=== PATIENT | female | born 1960 | race Caucasian/White ===

== ENCOUNTER → 2017-04-06 | Outpatient (CLI) | payer OTHER | END | disposition home or self-care (01) | LOC: MAMMO 15:01 | DX: Z12.31 Encounter for screening mammogram for malignant neoplasm of breast (principal) | CPT/HCPCS: 77063; 77067 ==

== ENCOUNTER → 2017-05-22 | Day surgery (SDC) | payer OTHER ==
[~2017-05-22] MED LIST: LIDOCAINE 1% PF 2 ML VIAL. ID; MORPHINE SULFATE 4 MG/ML DISP.SYRIN. IV; ONDANSETRON PF 4 MG/2 ML VIAL. IV; PROCHLORPERAZINE 10 MG/2 ML VIAL. IV; PROPOFOL 20 ML IV; fentaNYL PF VIAL 100 MCG/2 ML VIAL IV
[2017-05-22] MEDS: IV RINGERS,LACTATED 1000ML 1,000 ML IV (16:05)
== END ==
LOC: ENDOS 15:35
DX: Z09 Encounter for follow-up examination after completed treatment for conditions other than malignant neoplasm (principal); K21.9 Gastro-esophageal reflux disease without esophagitis; I10 Essential (primary) hypertension; M79.7 Fibromyalgia; F41.9 Anxiety disorder, unspecified; F32.9 Major depressive disorder, single episode, unspecified; Z88.8 Allergy status to other drugs, medicaments and biological substances; Z86.69 Personal history of other diseases of the nervous system and sense organs; Z80.0 Family history of malignant neoplasm of digestive organs
CPT/HCPCS: 45378; J2704

== ENCOUNTER → 2017-11-21 | Outpatient (CLI) | payer OTHER ==
[2017-05-22 17:24] VITALS: BP 118/55
[~2017-11-21] MED LIST changes: +AMIT100T PO; +BUPR100T7 PO; +CARI350T14 PO; +CITA10TA4 PO; +GABA-586 PO; +HYDR-2758 PO; +HYDR12.53 PO; +LACT1CAP6 PO; -LIDOCAINE 1% PF 2 ML VIAL. ID; -MORPHINE SULFATE 4 MG/ML DISP.SYRIN. IV; +OMEP20TA63 PO; -ONDANSETRON PF 4 MG/2 ML VIAL. IV; -PROCHLORPERAZINE 10 MG/2 ML VIAL. IV; -PROPOFOL 20 ML IV; +[UNRECOGNIZED DRUG - OTHER]; -fentaNYL PF VIAL 100 MCG/2 ML VIAL IV
--- NOTE | 2017-11-21 16:33 | RAD ---
Five-view lumbar spine dated 11/21/2017. No comparison available. Clinical data indication: Lumbar radiculopathy. FINDINGS: AP, lateral, bilateral oblique and coned-down views of lumbosacral junction obtained. 5 nonrib-bearing vertebral levels. Vertebral body heights are maintained. There is mild disc space narrowing at L2-L3 and L5-S1. Sagittal alignment is anatomic. Mild to moderate endplate hypertrophic changes throughout. Mild arthrosis lower lumbar apophyseal joints. No pars defects on the oblique views. IMPRESSION: 1. No acute radiographic abnormality. 2. Mild lower lumbar spondylosis. Electronically signed by: Rao Dickson MD (11/21/2017 4:30 PM) [facility]
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
== END | disposition home or self-care (01) ==
LOC: PNCL 14:19
PROVIDERS: ATTEND Anesthesiology
DX: M47.896 Other spondylosis, lumbar region (principal); M48.061 Spinal stenosis, lumbar region without neurogenic claudication; M79.604 Pain in right leg; M79.18 Myalgia, other site; M19.90 Unspecified osteoarthritis, unspecified site; I10 Essential (primary) hypertension; M89.38 Hypertrophy of bone, other site; Z82.49 Family history of ischemic heart disease and other diseases of the circulatory system; Z80.0 Family history of malignant neoplasm of digestive organs
CPT/HCPCS: 72110; 99214

== ENCOUNTER → 2018-02-06 | Outpatient (CLI) | payer OTHER ==
[2017-05-22 17:24] VITALS: BP 118/55
[~2018-02-06] MED LIST changes: +BUPIVACAINE MPF 0.25% 10 ML VIAL. ONE; -GABA-586 PO; +GABA300C18 PO; -HYDR-2758 PO; +HYDR-2761 PO; -HYDR12.53 PO; +HYDR12.575 PO; +methylPREDNISolone ACETATE 40 MG/ML VIAL. ONE
--- NOTE | 2018-02-06 18:36 | PAIN ---
DATE OF SERVICE: 02/06/2018 DIAGNOSES: 1. Low back pain with lumbar radiculopathy. 2. Myofascial pain. HISTORY OF PRESENT ILLNESS: The patient is a 57-year-old female who returns for followup status post initial evaluation and preauthorization for trigger point injections and has returned with preauthorization patient would like to proceed, still significant pain in the mid back, low back, bilateral hips, somewhat worse on the right than the left with some pain radiating to the right lower extremity as well. The patient reports it is a 9 on a scale of 10 at its worst, 7 on average, 3 at its least and is 7 today, which is worse with walking, standing, change in positions, awakens her from sleep several times a night, better with heat application, stretching and massage techniques in the mid and low back. The patient reports difficulty with walking. She has been stumbling, feels unsteady on her feet. The patient reports the pain is aching, sharp, dull, tight, shooting, stabbing, burning and cramping in the low back, becoming more constant some in the right leg as well. The patient reports no new motor or sensory deficits. No new bowel or bladder incontinence. PHYSICAL EXAMINATION: VITAL SIGNS: The patient's blood pressure 130/92, pulse is 71, respirations 16, temperature 98.3 degrees Fahrenheit, 5 feet 4 inches, weighs 142 pounds. GENERAL: The patient is awake, alert, oriented, appropriate, very pleasant demeanor. HEENT: Shows normocephalic, atraumatic. Extraocular muscles are intact and symmetrical. Oral cavity: Mucous membranes are moist and pink. Dentition is intact. NECK: Shows anterior throat supple without palpable lymphadenopathy noted. Swallow reflex symmetrical. CHEST: Shows normal on inspection. Breath sounds clear to auscultation bilaterally. HEART: Shows S1, S2 clear. No murmurs auscultated. ABDOMEN: Soft, nontender, nondistended. No palpable organomegaly is noted. No rebound or guarding demonstrated. BACK: Shows spine grossly in the midline. Normal appearing thoracic kyphosis and lumbar lordotic curvature. Paraspinous muscle shows symmetrical in the thoracic distribution, with palpation shows some moderate tenderness and very firm rope-like musculature in the inferior aspect of the thoracic paraspinous musculature. This is true into the bilateral lumbar paraspinous muscles, slightly worse on the right than the left, but present bilaterally with very firm rope-like musculature consistent with trigger point areas of musculature here as well. The patient's lower lumbar paraspinous muscle is more tender than the upper with multiple rope-like musculature regions identified as well without specific radiation. The patient's gluteus shows superior medial aspect of the gluteus on the right side greater than the left. Very significantly tender with palpation and rope-like musculature as well consistent with trigger point areas of muscle, but again no specific radiation. EXTREMITIES: The patient's lower extremities show deep tendon reflexes at 1+ in the patellar and tendo calcaneus tendons. Motor exam is approximately 4 on a scale 5 on the right and 5 out of 5 on the left with dorsiflexion and extension. Peripheral pulses are 1+ posterior tibia. No peripheral edema is noted. Options were discussed with the patient. The patient's old chart was reviewed as her current medication regimen updated. Current review of systems is updated today as well. We will proceed with trigger point injections of the thoracic paraspinous musculature, lumbar paraspinous musculature and gluteus musculature bilaterally. Risks were again discussed including, but not limited to bleeding, infection, possibility of intravascular injection sequelae, spread of local anesthetic and numbness, side effects of steroid medication and poor results regarding pain control. The patient understands and wished to proceed. The patient will return to the clinic in approximately 2 weeks for followup, was counseled on return appointment, activity level and side effects to be aware of. DIAGNOSIS: Myofascial pain and low back pain. PROCEDURE: Trigger point injections, bilateral thoracic paraspinous musculature, bilateral lumbar paraspinous musculature, bilateral gluteus musculature under sterile prep and drape using local anesthetic. MEDICATION INJECTED: A total of 10 mL of 0.25% bupivacaine and 40 mg total of Depo-Medrol after negative aspiration at each injection site. CONDITION AT DISCHARGE: Stable. The patient tolerated the procedure well, had no complications. BRANDON SAEZ MD DR: TINO/aramis JOB#: [id number] / [id number]
== END | disposition home or self-care (01) ==
LOC: PNCL 13:00
PROVIDERS: ATTEND Anesthesiology
DX: M79.18 Myalgia, other site (principal); M54.16 Radiculopathy, lumbar region
CPT/HCPCS: 20553; J1030; J3490

== ENCOUNTER → 2018-04-03 | Outpatient (CLI) | payer OTHER ==
[2017-05-22 17:24] VITALS: BP 118/55
[~2018-04-03] MED LIST changes: -BUPIVACAINE MPF 0.25% 10 ML VIAL. ONE; +CITA40TA5 PO; +MORP60TA PO; +PROP10TA PO; -methylPREDNISolone ACETATE 40 MG/ML VIAL. ONE
--- NOTE | 2018-04-04 04:16 | PAIN ---
DATE OF SERVICE: 04/03/2018 PROGRESS NOTE FOR PAIN CLINIC DIAGNOSES: 1. Low back pain with lumbar radiculopathy. 2. Myofascial pain. HISTORY OF PRESENT ILLNESS: The patient is 57-year-old female who returns for followup status post trigger point injections on 02/06/2018. The patient did very well with this, about 75% improvement overall. Pain in the low back as well as the pain in the right leg, which is becoming much more noticeable now, but was much better after the injection. The patient reports there is increase in her distance walking, doing work at home as well as taking care of her father who is very ill and has lot of needs with transporting and ambulatory needs at home. The patient reports this is beginning to make the pain return although it has been approximately 2 months since her last injection. She is having pain down the right leg again, in the posterior gluteus, posterior thigh and posterior calf. The patient reports pain in the low back as her primary complaint, aching, sharp, dull, tight, shooting, cramping, stabbing, becoming more constant, more radiating, some in the right side of the leg is noted. The patient reports it awakens her from sleep about every other night, but not every night. She sleeps about 4 hours at a time regardless of the pain or not. The patient reports no new motor or sensory deficits, no new changes or other complaints. PHYSICAL EXAMINATION: VITAL SIGNS: The patient's blood pressure 124/82, pulse 78, respirations 16, temperature is 98.4 degrees Fahrenheit, height is 5 feet 4 inches, weight is 142 pounds. The patient rates her pain as a 7 on a scale of 10 at its worst, 7 on average, 3 at its least and is a 7 today. GENERAL: The patient is awake, alert, oriented, appropriate, very pleasant demeanor. HEENT: Head shows normocephalic and atraumatic. Extraocular movements are intact and symmetrical. Oral cavity: Mucous membranes are moist and pink. Dentition is intact. NECK: Shows anterior throat is supple without palpable lymphadenopathy noted. Swallow reflex is symmetrical. CHEST: Shows normal with inspection. Breath sounds are clear to auscultation bilaterally. HEART: Shows S1 and S2 clear. No murmurs are auscultated. ABDOMEN: Obese, but soft, nontender and nondistended. No palpable organomegaly is noted. BACK: Shows spine grossly in the midline. Normal appearing thoracic kyphosis, mild flattening of the lumbar lordotic curvature. Lumbar paraspinous muscle shows symmetrical on inspection. With palpation shows some very firm rope-like musculature in the bilateral low thoracic and middle, upper and lower lumbar paraspinous musculature, right essentially equal to left, but more painful in the right lower lumbar paraspinous muscle, but very firm rope-like musculature consistent with trigger point areas of musculature without specific radiation. The patient has good rotational motion of the lumbar spine, slightly tender with forward flexion, but not with extension. EXTREMITIES: Lower extremities show deep tendon reflexes 1+ in the patellar and tendo-calcaneus tendons. Motor exam is approximately 4 on a scale of 5 on the right and 5/5 on the left with dorsiflexion and extension. Peripheral pulses are 1+ posterior tibial. No peripheral edema is noted bilaterally. Options were discussed with the patient. The patient's old chart was reviewed as was her current medication regimen updated. Current review of systems updated today as well. We will preauthorize the patient for a repeat trigger point injection as she did very well with the last injections. She will maintain with heat and massage therapies, also stretching and strengthening exercises as she has been doing, walking daily if possible as well. Prescribed Medrol Dosepak with instructions and side effects to be aware of discussed as well BRANDON SAEZ MD DR: TINO/aramis JOB#: [id number] / [id number]
== END | disposition home or self-care (01) ==
LOC: PNCL 13:38
PROVIDERS: ATTEND Anesthesiology
DX: M54.16 Radiculopathy, lumbar region (principal); M79.18 Myalgia, other site
CPT/HCPCS: G0463

== ENCOUNTER 2018-04-12 18:59 | Inpatient (IN) | payer OTHER ==
[~2018-04-12] VITALS: Ht 165.1 cm; Wt 68.6 kg
[~2018-04-12 18:59] MED LIST changes: -CITA40TA5 PO; -MORP60TA PO
[2018-04-12] MEDS ORDERED: DEXTROSE 50% 25 GM / 50ML DISP.SYRIN. IV ONE ×2 (19:28→20:00)
[2018-04-12 19:50] LABS: BASO % 1 % (0-3); EOS # 0.2 x10^3/uL (0.0-0.7); EOS % 3 % (0-3); HEMATOCRIT 32.9 % (36.0-47.0); HEMOGLOBIN 10.6 g/dL (12.0-15.5); LYMPH # 2.6 x10^3/uL (1.0-4.8); LYMPH % 40 % (24-48); MEAN CORPUSCULAR HEMOGLOBIN 28 pg (25-35); MEAN CORPUSCULAR HGB CONC 32 g/dL (31-37); MEAN CORPUSCULAR VOLUME 87 fL (79-100); MONO # 0.8 x10^3/uL (0.0-1.1); MONO % 13 % (0-9); NEUT # 2.8 x10^3uL (1.8-7.7); NEUT % 44 % (31-73); PLATELET COUNT 210 x10^3/uL (140-400); RED BLOOD COUNT 3.77 x10^6/uL (3.50-5.40); RED CELL DISTRIBUTION WIDTH 13.4 % (11.5-14.5); WHITE BLOOD COUNT 6.5 x10^3/uL (4.0-11.0)
[2018-04-12 19:53] LABS: BILIRUBIN,URINE NEGATIVE (NEG); CLARITY,URINE CLEAR; COLOR,URINE YELLOW; NITRITE,URINE NEGATIVE (NEG); PROTEIN,URINE NEGATIVE (NEG-TRACE); UROBILINOGEN,URINE 0.2 mg/dL (0.2 mg/dL)
[2018-04-12 20:00] LABS: PROTHROMBIN TIME PATIENT 13.4 SEC (11.7-14.0)
[2018-04-12] MEDS ORDERED: IV NORMAL SALINE 1000ML BAG 1,000 ML IV ONE ×3 (20:00→22:00)
[2018-04-12 20:01] LABS: BARBITURATES NEG (NEG); BENZODIAZEPINES NEG (NEG); CANNABINOIDS NEG (NEG); COCAINE NEG (NEG); METHADONE NEG (NEG); OPIATES POS (NEG); PHENCYCLIDINE NEG (NEG)
[2018-04-12 20:02] LABS: AMPHETAMINE/METHAMPHETAMINE NEG (NEG)
[2018-04-12 20:06] LABS: ALBUMIN 3.4 g/dL (3.4-5.0); ALBUMIN/GLOBULIN RATIO 1.2 (1.0-1.7); CALCIUM 8.1 mg/dL (8.5-10.1); GFR 56.7; MAGNESIUM 2.1 mg/dL (1.8-2.4); TOTAL BILIRUBIN 0.3 mg/dL (0.2-1.0); TOTAL PROTEIN 6.3 g/dL (6.4-8.2)
[2018-04-12 20:06] LABS: HYALINE CASTS, URINE MANY /HPF; SQUAMOUS EPITHELIAL CELL,UR FEW /LPF
[2018-04-12 20:07] LABS: BACTERIA,URINE 0 /HPF (0-FEW); RBC,URINE OCC /HPF (0-2); WBC,URINE OCC /HPF (0-4)
--- NOTE | 2018-04-12 21:08 | RAD ---
CT HEAD AND CERVICAL SPINE WO Clinical indications: trauma, headache. FELL TODAY. Technique: Noncontrast axial cross sectional scanning of the head was performed. PQRS compliance Statement One or more of the following individualized dose reduction techniques were utilized for this study: 1. Automated exposure control 2. Adjustment of the mA and/or kV according to patient size 3. Use of iterative reconstruction technique Findings: No acute intracranial hemorrhage or midline shift or mass-effect or hydrocephalus or extra-axial fluid collection is seen. No focal hypodense area or sulci effacement is seen to indicate an acute infarct or edema radiographically. No skull fracture or pneumocephalus is seen. No opacification of the mastoid sinuses or the middle ear cavities or the paranasal sinuses is seen. Impression: No acute intracranial abnormality is seen. NONCONTRAST CERVICAL SPINE CT TECHNIQUE: Noncontrast helical CT scanning of the cervical spine was performed. Multiplanar 2-D reconstructions were generated. FINDINGS: No acute fracture or discitis or lytic process is seen. Minimal grade 1 anterolisthesis of C3-4 is seen. There is degenerative endplate spurring and disc space narrowing at C4-5 and C5-6 and C6-7. Degenerative facet arthropathy is seen throughout the cervical spine. No perching of facet joints is seen. IMPRESSION: No acute fracture. Degenerative cervical spondylosis. Electronically signed by: West Persaud MD (04/12/2018 9:05 PM) [facility]
[2018-04-12] MEDS ORDERED: cefTRIAXone IV Push 1 GM VIAL. IVP ONE (22:00)
--- NOTE | 2018-04-12 22:27 | RAD ---
AP chest. HISTORY: Syncope AP view was taken of the chest. Heart is normal in size. There is no pleural effusion. There are slight interstitial changes in the in the lungs from mild interstitial edema or interstitial infiltrates. IMPRESSION: 1. Mild interstitial infiltrates or edema. Electronically signed by: Abbe Hunter MD (04/12/2018 10:24 PM) [id number]
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
[2018-04-12] MEDS ORDERED: MORPHINE SULFATE 4 MG/ML VIAL. IV ONE (23:00)
[2018-04-12] MEDS ORDERED: IV DEXTROSE 5 %-0.45 % NACL 1,000 ML IV ONE (23:00)
[2018-04-12] MEDS ORDERED: ONDANSETRON PF 4 MG/2 ML VIAL. IV PRN (23:00)
[2018-04-12] MEDS ORDERED: DOXYCYCLINE HYCLATE 100 MG in IV DEXTROSE 5% 100ML 100 ML IV ONE (23:15)
[2018-04-12] MEDS ORDERED: KETOROLAC 15 MG/ML VIAL. IV ONE (23:15)
[2018-04-12] MEDS ORDERED: IOHEXOL 300 MG/ML 100ML VIAL. IV ONE (23:15)
[2018-04-12] MEDS ORDERED: CONTRAST GIVEN. MC PRN (23:15)
--- NOTE | 2018-04-12 23:52 | RAD ---
CT study of the abdomen and pelvis with contrast COMPARISON: None available. INDICATIONS: Hypoglycemia. Unclear etiology. Possible insulinoma. TECHNIQUE: After IV infusion of 60 cc of Omnipaque 300, helical CT scanning of the abdomen and pelvis was performed. No GI contrast was administered. This may decrease the sensitivity to detect GI tract pathology. PQRS compliance Statement One or more of the following individualized dose reduction techniques were utilized for this study: 1. Automated exposure control 2. Adjustment of the mA and/or kV according to patient size 3. Use of iterative reconstruction technique FINDINGS: The liver and spleen and pancreas and gallbladder are normal. No extrahepatic biliary ductal dilatation is seen. No adrenal mass is evident. Both kidneys are normal. Urinary bladder wall is smooth. No uterine mass is evident. No dominant ovarian cyst or mass is evident. No focal aneurysmal dilatation of the abdominal aorta is seen. No enlarged abdominal or pelvic lymphadenopathy is evident. Mild fecal retention is seen throughout the colon. No obstructive bowel pattern is evident. The appendix is distended measuring up to 9 mm in caliber. No periappendiceal inflammatory change or free fluid or abscess is seen. No obstructive bowel pattern is evident. Dependent atelectasis of both posterior lower lobes is seen. No lytic process is seen. IMPRESSION: No pancreatic mass is seen. The appendix is distended measuring up to 9 mm in caliber. This may indicate early appendicitis. No periappendiceal free fluid or inflammatory change is evident otherwise. Electronically signed by: West Persaud MD (04/12/2018 11:49 PM) [facility]
[2018-04-13] MEDS ORDERED: POTASSIUM CHLORIDE 20 MEQ/15 ML ORAL LIQUID. PO ONE
[2018-04-13 00:32] VITALS: BP 108/51
[2018-04-13 03:00] VITALS: BP 109/62
[2018-04-13 06:09] LABS: CALCIUM 7.9 mg/dL (8.5-10.1); CREATININE 0.8 mg/dL (0.6-1.0); GFR 73.4
[2018-04-13 07:30] VITALS: BP 120/65
--- NOTE | 2018-04-13 08:31 | EKG ---
[facility] [address] [place] [address] Test Date: 2018-04-12 Test Time: 19:04:57 Pat Name: SYDNEY POTTS Department: Room: 263 1 Gender: F Scientist: : [id number] Requested By: VIRGILIO LO Order Number: [id number] Reading MD: Prasanth Armstrong MD Measurements Intervals [place] Rate: 60 P: 22 [place]: 162 QRS: 1 QRSD: 94 T: 24 QT: 448 QTc: 448 Interpretive Statements SINUS RHYTHM Electronically Signed On 04-23-2018 21:47:05 CDT by Prasanth Armstrong MD
[2018-04-13 11:06] VITALS: BP 123/58
[2018-04-13] MEDS ORDERED: CITA40TA5 PO (12:05)
[2018-04-13] MEDS ORDERED: CARI350T14 PO (12:05)
[2018-04-13] MEDS ORDERED: MORP60TA PO (12:05)
[2018-04-13] MEDS ORDERED: HYDROcodone/APAP 5/325MG 1 TAB TABLET PO PRN (12:15)
--- NOTE | 2018-04-13 12:17 | PDOC ---
PROGRESS NOTES Subjective Subjective Patient reports global headache presently. Denies lightheadedness. Just ate good amount of lunch. Objective Objective Vital Signs Date Time Temp Pulse Resp B/P (MAP) Pulse Ox O2 Delivery O2 Flow Rate FiO2 04/13/18 11:06 97.5 68 18 123/58 (79) 100 Room Air 97.5 04/12/18 22:26 2.0 Intake and Output 04/13/18 07:00 Intake Total 1700 ml Balance 1700 ml IV Total 1700 ml # Voids 1 Physical Exam Abdomen: Normal bowel sounds, Soft, No tenderness Heart: Regular rate Extremities: No edema General: Alert, Oriented X3, No acute distress Lungs: Clear to auscultation Plan Plan of Care 1. Vasovagal syncope - Patient had very little to eat all day yesterday, took all of her usual AM meds and had syncope after drinking some alcohol before dinner. Had another episode of brief LOC after returning home. CT head and C spine unremarkable, patient at baseline mental status and feels OK. Lab WNL this morning, tele with sinus rhythm. Home today. 2. hypoglycemia - resolved with IV glucose. FSBG normal now. No history of hyperglycemia. Lab for insulin level pending. Advised regular diet with plenty of protein and not much sugar. 3. HTN - BP mildly low, holding home medication but should resume tomorrow. 4. chronic pain - stable, continue home medication. 5. chronic headaches - stable, continue home medication. 6. enlarged appendix seen on CT - patient reports Dr Paredes removed her appendix with her R ovary many years ago. No TTP in R LQ. Comment Review of Relevant I have reviewed the following items maria alejandra (where applicable) has been applied. Labs Laboratory Tests Test 04/12/18 19:27 04/12/18 19:40 04/12/18 19:53 04/12/18 20:29 White Blood Count 6.5 x10^3/uL (4.0-11.0) Red Blood Count 3.77 x10^6/uL (3.50-5.40) Hemoglobin 10.6 g/dL (12.0-15.5) Hematocrit 32.9 % (36.0-47.0) Mean Corpuscular Volume 87 fL (79-100) Mean Corpuscular Hemoglobin 28 pg (25-35) Mean Corpuscular Hemoglobin Concent 32 g/dL (31-37) Red Cell Distribution Width 13.4 % (11.5-14.5) Platelet Count 210 x10^3/uL (140-400) Neutrophils (%) (Auto) 44 % (31-73) Lymphocytes (%) (Auto) 40 % (24-48) Monocytes (%) (Auto) 13 % (0-9) Eosinophils (%) (Auto) 3 % (0-3) Basophils (%) (Auto) 1 % (0-3) Neutrophils # (Auto) 2.8 x10^3uL (1.8-7.7) Lymphocytes # (Auto) 2.6 x10^3/uL (1.0-4.8) Monocytes # (Auto) 0.8 x10^3/uL (0.0-1.1) Eosinophils # (Auto) 0.2 x10^3/uL (0.0-0.7) Basophils # (Auto) 0.0 x10^3/uL (0.0-0.2) Prothrombin Time 13.4 SEC (11.7-14.0) Prothromb Time International Ratio 1.1 (0.8-1.1) Sodium Level 138 mmol/L (136-145) Potassium Level 3.0 mmol/L (3.5-5.1) Chloride Level 101 mmol/L (98-107) Carbon Dioxide Level 29 mmol/L (21-32) Anion Gap 8 (6-14) Blood Urea Nitrogen 8 mg/dL (7-20) Creatinine 1.0 mg/dL (0.6-1.0) Estimated GFR (Cockcroft-Gault) 56.7 BUN/Creatinine Ratio 8 (6-20) Glucose Level 32 mg/dL (70-99) Glucose (Fingerstick) 46 mg/dL (70-99) 141 mg/dL (70-99) 60 mg/dL (70-99) Lactic Acid Level 1.7 mmol/L (0.4-2.0) Calcium Level 8.1 mg/dL (8.5-10.1) Magnesium Level 2.1 mg/dL (1.8-2.4) Total Bilirubin 0.3 mg/dL (0.2-1.0) Aspartate Amino Transf (AST/SGOT) 20 U/L (15-37) Alanine Aminotransferase (ALT/SGPT) 21 U/L (14-59) Alkaline Phosphatase 56 U/L (46-116) Troponin I Quantitative < 0.017 ng/mL (0.000-0.055) GB-Qay-D-Type Natriuretic Peptide 57 pg/mL (0-124) Total Protein 6.3 g/dL (6.4-8.2) Albumin 3.4 g/dL (3.4-5.0) Albumin/Globulin Ratio 1.2 (1.0-1.7) Ethyl Alcohol Level 23 mg/dL (0-10) Urine Collection Type U cath Urine Color Yellow Urine Clarity Clear Urine pH 7.0 Urine Specific [place] 1.010 Urine Protein Negative mg/dL (NEG-TRACE) Urine Glucose (UA) 100 mg/dL (NEG) Urine Ketones (Stick) Negative mg/dL (NEG) Urine Blood Negative (NEG) Urine Nitrite Negative (NEG) Urine Bilirubin Negative (NEG) Urine Urobilinogen Dipstick 0.2 mg/dL (0.2 mg/dL) Urine Leukocyte Esterase Negative (NEG) Urine RBC Occ /HPF (0-2) Urine WBC Occ /HPF (0-4) Urine Squamous Epithelial Cells Few /LPF Urine Bacteria 0 /HPF (0-FEW) Urine Hyaline Casts Many /HPF Urine Mucus Slight /LPF Urine Opiates Screen Pos (NEG) Urine Methadone Screen Neg (NEG) Urine Barbiturates Neg (NEG) Urine Phencyclidine Screen Neg (NEG) Urine Amphetamine/Methamphetamine Neg (NEG) Urine Benzodiazepines Screen Neg (NEG) Urine Cocaine Screen Neg (NEG) Urine Cannabinoids Screen Neg (NEG) Urine Ethyl Alcohol Pos (NEG) Test 04/12/18 21:22 04/12/18 23:35 04/13/18 02:45 04/13/18 04:30 Glucose (Fingerstick) 90 mg/dL (70-99) 94 mg/dL (70-99) Troponin I Quantitative < 0.017 ng/mL (0.000-0.055) < 0.017 ng/mL (0.000-0.055) Sodium Level 138 mmol/L (136-145) Potassium Level 4.0 mmol/L (3.5-5.1) Chloride Level 104 mmol/L (98-107) Carbon Dioxide Level 27 mmol/L (21-32) Anion Gap 7 (6-14) Blood Urea Nitrogen 6 mg/dL (7-20) Creatinine 0.8 mg/dL (0.6-1.0) Estimated GFR (Cockcroft-Gault) 73.4 Glucose Level 93 mg/dL (70-99) Calcium Level 7.9 mg/dL (8.5-10.1) Test 04/13/18 08:02 04/13/18 11:34 Glucose (Fingerstick) 102 mg/dL (70-99) 123 mg/dL (70-99) Laboratory Tests Test 04/12/18 19:27 04/12/18 19:40 04/12/18 19:53 04/12/18 20:29 White Blood Count 6.5 x10^3/uL (4.0-11.0) Red Blood Count 3.77 x10^6/uL (3.50-5.40) Hemoglobin 10.6 g/dL (12.0-15.5) Hematocrit 32.9 % (36.0-47.0) Mean Corpuscular Volume 87 fL (79-100) Mean Corpuscular Hemoglobin 28 pg (25-35) Mean Corpuscular Hemoglobin Concent 32 g/dL (31-37) Red Cell Distribution Width 13.4 % (11.5-14.5) Platelet Count 210 x10^3/uL (140-400) Neutrophils (%) (Auto) 44 % (31-73) Lymphocytes (%) (Auto) 40 % (24-48) Monocytes (%) (Auto) 13 % (0-9) Eosinophils (%) (Auto) 3 % (0-3) Basophils (%) (Auto) 1 % (0-3) Neutrophils # (Auto) 2.8 x10^3uL (1.8-7.7) Lymphocytes # (Auto) 2.6 x10^3/uL (1.0-4.8) Monocytes # (Auto) 0.8 x10^3/uL (0.0-1.1) Eosinophils # (Auto) 0.2 x10^3/uL (0.0-0.7) Basophils # (Auto) 0.0 x10^3/uL (0.0-0.2) Prothrombin Time 13.4 SEC (11.7-14.0) Prothromb Time International Ratio 1.1 (0.8-1.1) Sodium Level 138 mmol/L (136-145) Potassium Level 3.0 mmol/L (3.5-5.1) Chloride Level 101 mmol/L (98-107) Carbon Dioxide Level 29 mmol/L (21-32) Anion Gap 8 (6-14) Blood Urea Nitrogen 8 mg/dL (7-20) Creatinine 1.0 mg/dL (0.6-1.0) Estimated GFR (Cockcroft-Gault) 56.7 BUN/Creatinine Ratio 8 (6-20) Glucose Level 32 mg/dL (70-99) Glucose (Fingerstick) 46 mg/dL (70-99) 141 mg/dL (70-99) 60 mg/dL (70-99) Lactic Acid Level 1.7 mmol/L (0.4-2.0) Calcium Level 8.1 mg/dL (8.5-10.1) Magnesium Level 2.1 mg/dL (1.8-2.4) Total Bilirubin 0.3 mg/dL (0.2-1.0) Aspartate Amino Transf (AST/SGOT) 20 U/L (15-37) Alanine Aminotransferase (ALT/SGPT) 21 U/L (14-59) Alkaline Phosphatase 56 U/L (46-116) Troponin I Quantitative < 0.017 ng/mL (0.000-0.055) VN-Vpu-J-Type Natriuretic Peptide 57 pg/mL (0-124) Total Protein 6.3 g/dL (6.4-8.2) Albumin 3.4 g/dL (3.4-5.0) Albumin/Globulin Ratio 1.2 (1.0-1.7) Ethyl Alcohol Level 23 mg/dL (0-10) Urine Collection Type U cath Urine Color Yellow Urine Clarity Clear Urine pH 7.0 Urine Specific [place] 1.010 Urine Protein Negative mg/dL (NEG-TRACE) Urine Glucose (UA) 100 mg/dL (NEG) Urine Ketones (Stick) Negative mg/dL (NEG) Urine Blood Negative (NEG) Urine Nitrite Negative (NEG) Urine Bilirubin Negative (NEG) Urine Urobilinogen Dipstick 0.2 mg/dL (0.2 mg/dL) Urine Leukocyte Esterase Negative (NEG) Urine RBC Occ /HPF (0-2) Urine WBC Occ /HPF (0-4) Urine Squamous Epithelial Cells Few /LPF Urine Bacteria 0 /HPF (0-FEW) Urine Hyaline Casts Many /HPF Urine Mucus Slight /LPF Urine Opiates Screen Pos (NEG) Urine Methadone Screen Neg (NEG) Urine Barbiturates Neg (NEG) Urine Phencyclidine Screen Neg (NEG) Urine Amphetamine/Methamphetamine Neg (NEG) Urine Benzodiazepines Screen Neg (NEG) Urine Cocaine Screen Neg (NEG) Urine Cannabinoids Screen Neg (NEG) Urine Ethyl Alcohol Pos (NEG) Test 04/12/18 21:22 04/12/18 23:35 04/13/18 02:45 04/13/18 04:30 Glucose (Fingerstick) 90 mg/dL (70-99) 94 mg/dL (70-99) Troponin I Quantitative < 0.017 ng/mL (0.000-0.055) < 0.017 ng/mL (0.000-0.055) Sodium Level 138 mmol/L (136-145) Potassium Level 4.0 mmol/L (3.5-5.1) Chloride Level 104 mmol/L (98-107) Carbon Dioxide Level 27 mmol/L (21-32) Anion Gap 7 (6-14) Blood Urea Nitrogen 6 mg/dL (7-20) Creatinine 0.8 mg/dL (0.6-1.0) Estimated GFR (Cockcroft-Gault) 73.4 Glucose Level 93 mg/dL (70-99) Calcium Level 7.9 mg/dL (8.5-10.1) Test 04/13/18 08:02 04/13/18 11:34 Glucose (Fingerstick) 102 mg/dL (70-99) 123 mg/dL (70-99) Medications Current Medications Dextrose (Dextrose 50%-Water Syringe) 25 gm STK-MED ONCE IV ; Start 04/12/18 at 19:28; Stop 04/12/18 at 19:29; Status DC Sodium Chloride 1,000 ml @ 1,000 mls/hr 1X ONCE IV Last administered on at 19:15; Start 04/12/18 at 20:00; Stop 04/12/18 at 20:59; Status DC Dextrose (Dextrose 50%-Water Syringe) 25 gm 1X ONCE IV Last administered on 04/12/18at 19:32; Start 04/12/18 at 20:00; Stop 04/12/18 at 20:01; Status DC Sodium Chloride 1,000 ml @ 1,000 mls/hr 1X ONCE IV Last administered on at 19:55; Start 04/12/18 at 21:00; Stop 04/12/18 at 21:59; Status DC Sodium Chloride 1,000 ml @ 1,000 mls/hr 1X ONCE IV ; Start 04/12/18 at 22:00; Stop 04/12/18 at 22:59; Status DC Dextrose/Sodium Chloride 1,000 ml @ 75 mls/hr 1X ONCE IV Last administered on 04/12/18at 20:45; Start 04/12/18 at 23:00; Stop 04/13/18 at 12:19 Ceftriaxone Sodium (Rocephin) 1 gm 1X ONCE IVP Last administered on 04/12/18 22:00; Start 04/12/18 at 22:00; Stop 04/12/18 at 22:01; Status DC Ondansetron HCl (Zofran) 4 mg PRN Q8HRS PRN IV NAUSEA/VOMITING; Start 04/12/18 at 23:00; Stop 04/13/18 at 22:59 Morphine Sulfate (Morphine Sulfate) 4 mg 1X ONCE IV ; Start 04/12/18 at 23:00; Stop 04/12/18 at 23:01; Status DC Iohexol (Omnipaque 300 Mg/ml) 60 ml 1X ONCE IV Last administered on 04/12/18at 23:19; Start 04/12/18 at 23:15; Stop 04/12/18 at 23:16; Status DC Ketorolac Tromethamine (Toradol 15mg Vial) 15 mg 1X ONCE IV Last administered on 04/12/18at 23:15; Start 04/12/18 at 23:15; Stop 04/12/18 at 23:16; Status DC Doxycycline Hyclate 100 mg/ Dextrose 100 ml @ 50 mls/hr 1X ONCE IV Last administered on 04/12/18at 23:15; Start 04/12/18 at 23:15; Stop 04/13/18 at 01:14; Status DC Info (CONTRAST GIVEN -- Rx MONITORING) 1 each PRN DAILY PRN MC SEE COMMENTS; Start 04/12/18 at 23:15; Stop 04/14/18 at 23:14 Potassium Chloride (KCl Oral Soln) 40 meq 1X ONCE PO Last administered on at 00:49; Start 04/13/18 at 00:00; Stop 04/13/18 at 00:01; Status DC Active Scripts Active Citalopram Hbr (Citalopram Hydrobromide) 40 Mg Tablet 1 Tab PO DAILY Carisoprodol 350 Mg Tablet 1 Tab PO BID 30 Days Morphine Sulfate Er (Morphine Sulfate) 60 Mg Tablet.er 1 Tab PO BID 30 Days Reported Propranolol Hcl 10 Mg Tablet 1 Tab PO BID PRN Probiotic (Lactobacillus Acidophilus) 1 Each Capsule 1 Each PO DAILY [Vitamins B C D] DAILY Hydrocodone-Apap 5-325 (Hydrocodone Bit/Acetaminophen) 1 Each Tablet 1 Tab PO PRN Q6HRS PRN Hydrochlorothiazide Capsule (Hydrochlorothiazide) 12.5 Mg Capsule 1 Cap PO DAILY Gabapentin (Gabapentin) 300 Mg Capsule 300 Mg PO TID Wellbutrin Sr (Bupropion Hcl) 100 Mg Tablet.er 75 Mg PO TID Vitals/I & O Vital Sign - Last 24 Hours 04/12/18 04/12/18 04/12/18 04/12/18 18:59 19:06 19:31 19:46 Temp 98.2 98.2 Pulse 59 68 62 64 Resp 12 B/P (MAP) 88/51 (63) 88/51 (63) 94/53 (67) 96/59 (71) Pulse Ox 94 95 100 O2 Delivery Room Air Room Air Room Air Nasal Cannula O2 Flow Rate 2.0 04/12/18 04/12/18 04/12/18 04/12/18 20:01 20:26 20:41 20:56 Pulse 62 64 58 62 B/P (MAP) 94/56 (69) 99/61 (74) 114/68 (83) 91/53 (66) Pulse Ox 100 95 100 99 O2 Delivery Nasal Cannula Nasal Cannula Nasal Cannula Nasal Cannula O2 Flow Rate 2.0 2.0 2.0 2.0 04/12/18 04/12/18 04/12/18 04/12/18 21:11 21:26 21:41 21:56 Pulse 60 60 58 62 B/P (MAP) 90/53 (65) 96/51 (66) 98/58 (71) 97/62 (74) Pulse Ox 99 98 99 98 O2 Delivery Nasal Cannula Nasal Cannula Nasal Cannula Nasal Cannula O2 Flow Rate 2.0 2.0 2.0 2.0 04/12/18 04/12/18 04/12/18 04/12/18 22:11 22:26 22:56 23:33 Pulse 60 74 62 52 B/P (MAP) 103/59 (74) 99/60 (73) 82/51 (61) 105/52 (69) Pulse Ox 98 96 97 O2 Delivery Nasal Cannula Nasal Cannula Room Air Room Air O2 Flow Rate 2.0 2.0 04/13/18 04/13/18 04/13/18 04/13/18 00:32 01:16 03:00 07:30 Temp 98.2 97.6 98.0 98.2 97.6 98.0 Pulse 60 60 68 Resp 18 18 14 B/P (MAP) 108/51 (70) 109/62 (78) 120/65 (83) Pulse Ox 95 95 96 O2 Delivery Room Air Room Air Room Air Room Air 04/13/18 04/13/18 07:35 11:06 Temp 97.5 97.5 Pulse 68 Resp 18 B/P (MAP) 123/58 (79) Pulse Ox 100 O2 Delivery Room Air Room Air Intake and Output 04/12/18 04/12/18 04/13/18 15:00 23:00 07:00 Intake Total 1700 ml Balance 1700 ml DIANA GARCIA MD Apr 13, 2018 12:17
[2018-04-13] MEDS ORDERED: HYDR12.575 PO (12:21)
[2018-04-13] MEDS ORDERED: CITALOPRAM 20 MG TABLET. PO SCH (13:00)
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
[2018-04-13] MEDS ORDERED: buPROPion 75 MG TABLET. PO SCH (14:00)
--- NOTE | 2018-04-13 16:02 | NUR ---
PATIENTS IV OUT AND TELE MONITOR OFF. PATIENT ESCORTED TO [employer] BY THIS RN. PATIENT STABLE AT TIME OF DISCHARGE. PATIENTS DISCHARGE INSTRUCTIONS DISCUSSED WITH PATIENT. PATIENT HAS NO QUESTIONS AT THIS TIME. PATIENT INFORMED TO HOLD BLOOD PRESSURE MEDICATIONS UNTIL TOMORROW DUE TO DIZZINESS. PATIENT INFORMED TO PLACE ICE TO HEAD AT HOME FOR HEAD PAIN FROM FALL.
== END 2018-04-13 16:04 | disposition home or self-care (01) | DRG 641 ==
LOC: ER 18:59 → 2 SOUTH 22:40
PROVIDERS: ADMIT Family Medicine; ATTEND Family Medicine
DX: E16.2 Hypoglycemia, unspecified (principal); G89.29 Other chronic pain; I10 Essential (primary) hypertension; M47.812 Spondylosis without myelopathy or radiculopathy, cervical region; F32.9 Major depressive disorder, single episode, unspecified; W22.01XA Walked into wall, initial encounter; Z86.61 Personal history of infections of the central nervous system; Z90.49 Acquired absence of other specified parts of digestive tract; Z90.721 Acquired absence of ovaries, unilateral; Y93.89 Activity, other specified; Y92.89 Other specified places as the place of occurrence of the external cause; Y99.8 Other external cause status; R55 Syncope and collapse
CPT/HCPCS: 36415; 70450; 71045; 72125; 74177; 80048; 80053; 80307; 81001; 82962; 83525; 83605; 83735; 83880; 84484; 85025; 85610; 87040; 93005; 96365; 96366; 96368; 96375; G0480; J0696; J1885; J3490; J7030; J7042; Q9967; 99285-25

== ENCOUNTER → 2018-04-23 | Outpatient (CLI) | payer OTHER ==
[2018-04-13 11:06] VITALS: BP 123/58
[~2018-04-23] MED LIST changes: +BUPIVACAINE MPF 0.25% 10 ML VIAL. ONE; +CITA40TA5 PO; +MORP60TA PO; +methylPREDNISolone ACETATE 40 MG/ML VIAL. ONE
--- NOTE | 2018-04-23 21:10 | PAIN ---
DATE OF SERVICE: 04/23/2018 DIAGNOSES: 1. Low back pain with lumbar radiculopathy. 2. Myofascial pain. HISTORY OF PRESENT ILLNESS: The patient is a 57-year-old female who returns for followup status post trigger point injection, most frequently on 02/06/2018. The patient did well with these, about 60% improvement overall. Reports the pain has been returning now in the base of the neck, shoulders, upper back, mid back, low back as well as the neck. The patient reports she has a bad headache today with some tightness in the neck and shoulders. The patient describes the pain as aching and dull, tight, shooting in the low back, also some pain in the low back and right leg. It is radiating, becoming more constant, but her main complaint is neck and upper shoulders as well as headache. The patient reports the pain is 9 on a scale of 10 at its worst, 8 on average, 3 at its least and is 8 today. The patient reports no new motor or sensory deficits or other changes. The patient reports that she had a fall earlier this month, but had CT scan of her head that looks normal by report today. The patient reports no new motor or sensory deficits or other complaints, still significant pain, worse with walking, moving, changing positions, has been awakening her from sleep occasionally, but generally better at night. She is using heating pad to the base of the neck and shoulders as well as the upper mid back and low back, which does help also. Hot showers or soaking in a tub helps decrease the pain. She is also doing some stretching, does not seem to be as effective as it has been in the past. The patient reports no other changes. PHYSICAL EXAMINATION: VITAL SIGNS: Blood pressure is 124/81, pulse 63, respirations 18, temperature 98.2 degrees Fahrenheit. Height is 5 feet 4 inches and weight is 141 pounds. GENERAL: The patient is awake, alert, oriented, appropriate, very pleasant demeanor. HEENT: Head is normocephalic, atraumatic. Extraocular movements are intact and symmetrical. Oral cavity: Mucous membranes moist and pink. Dentition is intact. NECK: Shows anterior throat supple without palpable lymphadenopathy noted. Swallow reflex symmetrical. CHEST: Shows normal with inspection. Breath sounds clear to auscultation bilaterally. HEART: Shows S1, S2 clear. No murmurs auscultated. ABDOMEN: Soft, nontender, nondistended. No palpable organomegaly is noted. No rebound or guarding demonstrated. BACK: Shows spine grossly in the midline. Normal-appearing thoracic kyphosis and lordotic curvature and cervical lordotic curvature. Cervical paraspinal shows symmetrical on inspection, with palpation there is very firm rope-like trigger point areas of musculature bilaterally, essentially equal right and left without any atrophy or hypertrophy. The patient has good rotational motion of cervical spine, both laterally greater than 45 degrees as well as extension and flexion without significant difficulty. The patient's trapezius muscle shows significant tenderness as well with very firm rope-like musculature consistent with trigger point areas of muscles in the bilateral trapezius, somewhat worse on the right than the left, more tender, but again without specific radiation bilaterally. The patient's mid back shows rhomboid musculature, very firm and rope like as well as the thoracic paraspinous musculature and the lumbar paraspinals, especially on the left side in the low lumbar distribution, with very rope-like firm musculature consistent with trigger point areas of muscle again without radiation. EXTREMITIES: Show lower extremities deep tendon reflexes 1+ in the patellar and tendo-calcaneus tendons. Motor exam is approximately 4 on a scale of 5 on the right and 5/5 on the left, but intact. Peripheral pulses are 1+ posterior tibial. No peripheral edema is noted bilaterally. Options were discussed with the patient. The patient's old chart was reviewed as was her current medication regimen updated. Current review of systems updated today as well and we will proceed with trigger point injections of the aforementioned musculature. Risks were again discussed including, but not limited to bleeding, infection, possibility of intravascular injection sequelae, spread of local anesthetic and numbness, pneumothorax, side effects of steroid medication as well as poor results regarding pain control. The patient understands and wished to proceed. The patient to return to clinic in approximately 1 month for followup or sooner if necessary, was counseled as to return appointment, activity level and side effects to be aware of. DIAGNOSIS: Myofascial pain. PROCEDURE: Trigger point injections, bilateral cervical paraspinous musculature, bilateral trapezius musculature, bilateral rhomboid and thoracic paraspinous musculature and bilateral lumbar paraspinous musculature under sterile prep and drape using local anesthetic. MEDICATION INJECTED: A total of 18 mL of 0.25% bupivacaine after negative aspiration at each injection site, a total of 40 mg Depo-Medrol. CONDITION AT DISCHARGE: Stable. The patient tolerated the procedure well, had no complications. BRANDON SAEZ MD DR: TINO/aramis JOB#: [id number] / [id number]
== END | disposition home or self-care (01) ==
LOC: PNCL 13:43
PROVIDERS: ATTEND Anesthesiology
DX: M54.16 Radiculopathy, lumbar region (principal); M54.5 Low back pain; M79.18 Myalgia, other site
CPT/HCPCS: 20553; J1030; J3490

== ENCOUNTER → 2018-05-21 | Outpatient (CLI) | payer OTHER ==
[~2018-05-21] MED LIST changes: -BUPIVACAINE MPF 0.25% 10 ML VIAL. ONE; -methylPREDNISolone ACETATE 40 MG/ML VIAL. ONE
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
== END | disposition home or self-care (01) ==
LOC: PNCL 13:34
PROVIDERS: ATTEND Anesthesiology
DX: M54.16 Radiculopathy, lumbar region (principal); M79.18 Myalgia, other site
CPT/HCPCS: G0463

== ENCOUNTER → 2018-06-10 | Outpatient (CLI) | payer OTHER ==
--- NOTE | 2018-06-10 16:21 | RAD ---
DATE: 06/10/2018 EXAM: MAMMO ARIEL SCREENING BILATERAL HISTORY: Routine screening COMPARISON: 04/06/2017 This study was interpreted with the benefit of Computerized Aided Detection (CAD). Breast Density: SCATTERED The breast parenchyma shows scattered fibroglandular densities. Breast parenchyma level B. FINDINGS: 2-D and 3-D tomosynthesis imaging was performed in CC and MLO projections. Single small unchanged lymph node type densities are again noted posterolaterally in both breasts. No new or enlarging breast densities are seen. There are coarse benign type calcifications in both breasts. No suspicious microcalcifications have developed. IMPRESSION: There is no mammographic evidence of malignancy in either breast. BI-RADS CATEGORY: 2 BENIGN FINDING(S) RECOMMENDED FOLLOW-UP: 12M 12 MONTH FOLLOW-UP PQRS compliance statement: Patient information was entered into a reminder system with a target due date for the next mammogram. Mammography is a sensitive method for finding small breast cancers, but it does not detect them all and is not a substitute for careful clinical examination. A negative mammogram does not negate a clinically suspicious finding and should not result in delay in biopsying a clinically suspicious abnormality. "Our facility is accredited by the [employer] Mammography Program."
== END | disposition home or self-care (01) ==
LOC: MAMMO 14:51
PROVIDERS: ATTEND Family Medicine
DX: Z12.31 Encounter for screening mammogram for malignant neoplasm of breast (principal); N64.89 Other specified disorders of breast
CPT/HCPCS: 77063; 77067

== ENCOUNTER → 2018-06-26 | Outpatient (CLI) | payer OTHER ==
[~2018-06-26] MED LIST changes: +BUPIVACAINE MPF 0.25% 10 ML VIAL. ONE; +methylPREDNISolone ACETATE 40 MG/ML VIAL. ONE
--- NOTE | 2018-06-27 05:08 | PAIN ---
DATE OF SERVICE: 06/26/2018 PROGRESS NOTE FOR PAIN CLINIC DIAGNOSES: 1. Low back pain with lumbar radiculopathy. 2. Myofascial pain. HISTORY OF PRESENT ILLNESS: The patient is a 57-year-old female who returns for followup status post trigger point injections, last procedure was on 04/23/2018. The patient had a Medrol Dosepak on 05/21/2018, which she reports did do some help with about 20-30% and previous trigger point injections about 60% improvement, however, and did very well with those until a few weeks ago, the pain began to return and then yesterday she had a tree fall in her driveway and had to help her to move the tree and get it cut up and taking care of. This caused a lot of increased pain. She is very sore today. The pain is in the base of the neck, shoulders, upper back, mid back, low back, some radiation to the lower extremity on the right side, but only worse with activity since yesterday. The patient reports otherwise she has been doing fairly well, but the pain is returning fairly significantly with some stiffness and tightness in the neck and shoulders. Describes it as aching and tight, shooting, radiating, becoming constant in the right leg and stabbing in the low back as well as the mid back and upper back. The patient reports the pain is a 9 on a scale of 10 over the past week at its worst, 6 on average, 3 at its least and is a 9 today. The patient reports no new motor or sensory deficits, no new bowel or bladder incontinence or other complaints. PHYSICAL EXAMINATION: VITAL SIGNS: The patient's blood pressure is 122/72, pulse 69, respirations 16, temperature is 98.2 degrees Fahrenheit, weight is 142 pounds. GENERAL: The patient is awake, alert, oriented, appropriate, very pleasant demeanor. HEENT: Shows normocephalic, atraumatic. Extraocular movements are intact and symmetrical. Oral cavity: Mucous membranes moist and pink. Dentition is intact. NECK: Shows anterior throat supple without palpable lymphadenopathy noted. Swallow reflex is symmetrical. CHEST: Shows normal on inspection. Breath sounds are clear to auscultation bilaterally. HEART: Shows S1, S2 clear. No murmurs auscultated. ABDOMEN: Soft, nontender, nondistended. No palpable organomegaly is noted. No rebound or guarding demonstrated. BACK: Shows spine grossly in the midline. Normal appearing thoracic kyphosis, cervical lordotic curvature and lumbar lordotic curvature. Cervical paraspinous muscle shows symmetrical on inspection, with palpation shows some moderate tenderness diffusely bilaterally, but only diffusely without significant radiation. The patient shows good rotational motion of the lumbar spine and thoracic spine and cervical spine with palpation of the paraspinous musculature of the cervical distribution shows very firm rope-like musculature throughout the upper, middle and lower distribution of paraspinous muscles without specific radiation, very firm rope-like tender musculature, slightly worse on the right than the left and into the superior medial trapezius and the lateral trapezius, right greater than left as well consistent with trigger point areas of musculature throughout the cervical and trapezius levels. The patient's rhomboid musculature as well as thoracic paraspinous muscles again shows worse tenderness on the right than the left with palpation and very firm rope-like musculature consistent with trigger point areas once again bilaterally. This is true into the lumbar distribution with more significant pain in the low lumbar distribution, but seems to be more equal right and left and symmetrical with trigger point areas of the musculature in the middle and lower lumbar distribution specifically and again more symmetrical. No specific tenderness over the posterior superior iliac spines or sacroiliac regions. The patient does show good rotational motion. Once again, the lumbar spine as well as the extension and flexion has only very mild pain. EXTREMITIES: The patient's lower extremities show deep tendon reflexes at 2+ patellar and tendo-calcaneus tendons are 1+. Motor exam is strong with 5/5 dorsiflexion, extension, quadriceps and hamstring flexion. Peripheral pulses are 1+ posterior tibia. No peripheral edema noted in bilateral lower extremities. Options were discussed with the patient. The patient's old chart was reviewed as her current medication regimen updated. Current review of systems updated today as well. We will proceed with trigger point injections of the identified musculature. Risks were again discussed including, but not limited to bleeding, infection, possibility of intravascular injection and sequelae, spread of local anesthetic and numbness, pneumothorax, side effects of steroid medication as well as poor results regarding pain control. The patient understands and wished to proceed. The patient will return to the clinic in approximately 2 weeks for followup, was counseled on return appointment, activity level and side effects to be aware of. DIAGNOSIS: Myofascial pain. PROCEDURE: Trigger point injections, bilateral cervical paraspinous musculature, bilateral trapezius musculature, bilateral rhomboid musculature, bilateral thoracic paraspinous musculature and bilateral lumbar paraspinous muscles under sterile prep and drape using local anesthetic. MEDICATION INJECTED: A total of 16 mL of 0.25% bupivacaine after negative aspiration at each injection site and a total of 40 mg Depo-Medrol. CONDITION AT DISCHARGE: Stable. The patient tolerated the procedure well, had no complications. BRANDON SAEZ MD DR: TINO/aramis JOB#: [id number] / [id number]
== END | disposition home or self-care (01) ==
LOC: PNCL 14:02
PROVIDERS: ATTEND Anesthesiology
DX: M79.18 Myalgia, other site (principal); M54.16 Radiculopathy, lumbar region
CPT/HCPCS: 20553; J1030; J3490

== ENCOUNTER → 2018-07-29 | Outpatient (CLI) | payer OTHER ==
[~2018-07-29] MED LIST changes: -BUPIVACAINE MPF 0.25% 10 ML VIAL. ONE; +ZOLPIDEM 5 MG TABLET. PO ONE; -methylPREDNISolone ACETATE 40 MG/ML VIAL. ONE
--- NOTE | 2018-07-30 09:18 | SLEEP ---
DATE OF STUDY: 07/29/2018 ATTENDING PHYSICIAN: Dr. Sia Galloway. The patient is a 57-year-old who weighs 139 pounds with a BMI of 23. The patient has history of chronic back pain and had surgeries in the back and as a result is on multiple medications including citalopram, amitriptyline, gabapentin, MS Contin and hydrocodone. A split night sleep study was performed at [facility] to rule out sleep apnea. During the night study, the patient spent 452 minutes in bed and slept for 307 minutes with a low sleep efficiency of 68%. Sleep latency was prolonged at 112 minutes with absence of REM sleep. Overall, sleep architecture showed increased stage 1 and stage 2 sleep, normal slow wave sleep and absent REM sleep. During the initial diagnostic portion of the study, the patient slept for 194 minutes. During that time, there were 9 obstructive apneas, 13 mixed apneas, 8 central apneas and 30 hypopneas. The patient's apnea-hypopnea index was 55 per hour with a supine index of 61 per hour. REM sleep was not seen. Nocturnal oximetry study revealed an average oxygen saturation of 96% with the lowest of 83%. 5.7% of time oxygen saturation remained between 80% and 89%. EKG monitoring revealed no arrhythmias. No clinically significant PLMS observed. The patient was started on CPAP at 7 cm water and titrated up to 15 cm water. At the final pressure, the patient slept for 44 minutes. The patient had supine sleep, but no REM sleep. The patient's AHI was still 54 per hour due to persistent central and mixed apneas. Oxygen saturations remained above 91%. The patient used a small size full face mask. Optimum CPAP pressure was not achieved. IMPRESSION: 1. Severe sleep apnea-hypopnea syndrome at an AHI of 55 per hour. 2. Mild nocturnal hypoxia secondary to obstructive sleep apnea, but resolved with CPAP. 3. No clinically significant periodic limb movements of sleep. 4. Reduced sleep efficiency of 68%, resulting from sleep onset and sleep maintenance insomnia. RECOMMENDATIONS: 1. Optimum CPAP pressure was not achieved due to reduced sleep efficiency and limited sleep time and in addition due to persistence central and mixed apneas which may be related to the chronic use of narcotics. 2. I would recommend the patient should return to the sleep lab for a CPAP/BiPAP titration study starting at 15 cm H20 pressure. In the meantime, if narcotic dose can be minimized, it would help in achieving an optimal PAP pressure. 3. Caution regarding driving until the patient's hypersomnia is resolved with the above recommendations. CORY ZAZUETA MD DR: ISAURA/aramis JOB#: [id number] / [id number] SIA Martinez MD MTDD
== END | disposition home or self-care (01) ==
LOC: RT 20:19
PROVIDERS: ATTEND Family Medicine
DX: G47.33 Obstructive sleep apnea (adult) (pediatric) (principal); G47.34 Idiopathic sleep related nonobstructive alveolar hypoventilation; Z79.899 Other long term (current) drug therapy; Z79.891 Long term (current) use of opiate analgesic; G89.29 Other chronic pain
CPT/HCPCS: 95810

== ENCOUNTER → 2018-09-18 | Outpatient (CLI) | payer OTHER ==
--- NOTE | 2018-09-19 08:04 | SLEEP ---
DATE OF STUDY: 09/18/2018 SLEEP STUDY ATTENDING PHYSICIAN: Dr. Sia Galloway. The patient is 57 years old who weighs 139 pounds with a BMI of 23. The patient had a previous sleep study and was found to have severe ALFREDO at an AHI of 55 per hour. Optimum CPAP pressure was not achieved on this split night study. The patient was referred back for a CPAP titration study. During the night study, the patient spent 453 minutes in bed and slept for 237 minutes with a low sleep efficiency of 52%. Sleep latency was prolonged at 205 minutes with a REM latency of 29 minutes. Overall, sleep architecture showed normal stage 1 sleep, increased stage 2 sleep, normal slow wave and slightly reduced REM sleep. EKG monitoring revealed normal sinus rhythm, no sustained arrhythmias observed. No clinically significant PLM seen. The patient was started on CPAP at 15 cm water and titrated up to 17 cm water. However, best results were seen at a CPAP pressure of 15 cm water. At that pressure, the patient slept for 180 minutes. The patient's AHI was reduced to 5 per hour, mostly due to few central apneas. The patient is on pain medications. Oxygen saturation remained above 93%. The patient had supine and REM sleep. The patient used a small size full face mask. IMPRESSION: 1. Severe sleep apnea diagnosed by previous sleep study. 2. Reduced sleep efficiency resulting from sleep onset and sleep maintenance insomnia. 3. No clinically significant periodic limb movements. RECOMMENDATIONS: 1. CPAP at 15 cm water completely eliminated the patient's sleep apnea and should be used on a nightly basis. 2. Follow up in 4-6 weeks to assess compliance with CPAP and to document clinical improvement. 3. Avoid [employer] depressants. The patient is currently on hydrocodone. 4. Cautioned regarding driving until symptoms of sleep apnea resolve with the use of CPAP. CORY ZAZUETA MD DR: ISAURA/aramis JOB#: [id number] / [id number] SIA Martinez MD
== END | disposition home or self-care (01) ==
LOC: RT 20:21
PROVIDERS: ATTEND Family Medicine
DX: G47.33 Obstructive sleep apnea (adult) (pediatric) (principal); R40.0 Somnolence
CPT/HCPCS: 95811

== ENCOUNTER → 2018-12-10 | Outpatient (CLI) | payer OTHER ==
[~2018-12-10] MED LIST changes: -MORP60TA PO; +MORP60TA60 PO; -ZOLPIDEM 5 MG TABLET. PO ONE
[2018-12-10 15:13] LABS: BASO # 0.1 x10^3/uL (0.0-0.2); BASO % 1 % (0-3); EOS # 0.1 x10^3/uL (0.0-0.7); EOS % 1 % (0-3); HEMATOCRIT 39.2 % (36.0-47.0); HEMOGLOBIN 12.9 g/dL (12.0-15.5); LYMPH # 1.9 x10^3/uL (1.0-4.8); LYMPH % 23 % (24-48); MEAN CORPUSCULAR HEMOGLOBIN 29 pg (25-35); MEAN CORPUSCULAR HGB CONC 33 g/dL (31-37); MEAN CORPUSCULAR VOLUME 87 fL (79-100); MONO # 0.6 x10^3/uL (0.0-1.1); MONO % 7 % (0-9); NEUT # 5.5 x10^3/uL (1.8-7.7); NEUT % 68 % (31-73); PLATELET COUNT 258 x10^3/uL (140-400); RED BLOOD COUNT 4.52 x10^6/uL (3.50-5.40); RED CELL DISTRIBUTION WIDTH 12.5 % (11.5-14.5)
[2018-12-10 15:34] LABS: BARBITURATES NEG (NEG); BENZODIAZEPINES NEG (NEG); CANNABINOIDS NEG (NEG); COCAINE NEG (NEG); METHADONE NEG (NEG); OPIATES POS (NEG); PHENCYCLIDINE NEG (NEG)
[2018-12-10 15:35] LABS: ALBUMIN 4.1 g/dL (3.4-5.0); ALBUMIN/GLOBULIN RATIO 1.1 (1.0-1.7); CALCIUM 8.4 mg/dL (8.5-10.1); CREATININE 0.8 mg/dL (0.6-1.0); GFR 73.2; POTASSIUM 4.2 mmol/L (3.5-5.1); TOTAL BILIRUBIN 0.3 mg/dL (0.2-1.0); TOTAL PROTEIN 7.8 g/dL (6.4-8.2)
[2018-12-10 15:41] LABS: AMPHETAMINE/METHAMPHETAMINE NEG (NEG)
== END | disposition home or self-care (01) ==
LOC: LAB 14:49
PROVIDERS: ATTEND Psychiatry & Neurology Neurology
DX: R41.3 Other amnesia (principal); G43.001 Migraine without aura, not intractable, with status migrainosus
CPT/HCPCS: 36415; 80053; 80307; 82607; 84443; 85025; 85651

== ENCOUNTER → 2019-01-06 | Outpatient (CLI) | payer OTHER ==
[~2019-01-06] MED LIST changes: +ZOLPIDEM 5 MG TABLET. PO ONE
--- NOTE | 2019-01-07 09:55 | SLEEP ---
DATE OF STUDY: 01/06/2019 ATTENDING PHYSICIAN: Aria Spain MD The patient is a 58-year-old who weighs 141 pounds with a BMI of 24. The patient has severe sleep apnea diagnosed by previous sleep study and has been prescribed CPAP at 15 cm water based on September sleep study; however, she was not been able to tolerate CPAP, as a result, she was referred for a BiPAP titration study. During the night study, the patient spent 392 minutes in bed and slept for 278 minutes with a sleep efficiency of 71%. Sleep latency was 89 minutes with a REM latency of 293 minutes. Sleep architecture showed increased stage 1 and stage 2 sleep, absent slow wave and reduced REM sleep. EKG monitoring revealed normal sinus rhythm, average heart rate 71 beats per minute, no sustained arrhythmias observed. PLMS were seen at index of 8 per hour and 2 per hour caused EEG arousals. The patient was started on BiPAP at a pressure of 16/12 and titrated up to 27/18. At this pressure, the patient slept for 104 minutes with an AHI of 1.1 per hour. The patient had supine sleep and REM sleep as well. The patient's oxygen saturation remained above 88% with few spot desaturation in the high 80s. However, the patient should be able to tolerate a lower BiPAP pressure of 26/18. IMPRESSION: 1. Severe sleep apnea diagnosed by previous sleep study. 2. No clinically significant periodic limb movements. RECOMMENDATIONS: 1. BiPAP at 26/18 should be used on a nightly basis. 2. Follow up in 4-6 weeks to assess compliance with BiPAP and to document clinical improvement. 3. Avoid LAB RN depressants. 4. Cautioned regarding driving until symptoms of sleep apnea resolve with the use of BiPAP. CORY ZAZUETA MD DR: ISAURA/aramis JOB#: [id number] / [id number] ARIA Chau MD
== END | disposition home or self-care (01) ==
LOC: RT 20:41
PROVIDERS: ATTEND Family Medicine
DX: G47.33 Obstructive sleep apnea (adult) (pediatric) (principal); I25.10 Atherosclerotic heart disease of native coronary artery without angina pectoris
CPT/HCPCS: 95811

== ENCOUNTER → 2019-01-07 | Outpatient (CLI) | payer OTHER ==
[~2019-01-07] MED LIST changes: -ZOLPIDEM 5 MG TABLET. PO ONE
--- NOTE | 2019-01-08 19:26 | EEG ---
DATE OF SERVICE: 01/07/2019 EEG NUMBER: [id number]. OBJECTIVE: This is a 58-year-old female patient with a history of memory loss. EEG was requested to evaluate cerebral activity. METHODS: Twenty electrodes were applied according to the international 10-20 electrode placement system. EKG monitoring, hyperventilation, intermittent photic stimulation, monopolar and bipolar montages are routinely utilized. The record was obtained on a digital system with video monitoring. FINDINGS: 1. Background: The patient was recorded in the awake, drowsy and sleep states but mainly in the drowsy and sleep states. The overall background amplitude is 5-10 microvolts. A posterior dominant rhythm of 7-8 Hz is observed. 2. Abnormalities: No specific epileptiform discharge or electrographic seizure is seen. No focal or diffuse slowing. 3. Activation: Hyperventilation was performed with good efforts and normal response. Intermittent photic stimulation was performed with photic driving. IMPRESSION: This EEG is not a questionable study for the awake, drowsy and sleep states, but mainly in the drowsy and sleep states. There is relatively low amplitude with muscle artifact. No focal, lateralizing, specific epileptiform discharge or electrographic seizure is seen. The posterior dominant rhythm of 7-8 Hz is mildly slow for age; suggests repeat EEG including fully awake state. GERTRUDE GRANT MD DR: Holland JOB#: [id number] / [id number] MAYCO
== END | disposition home or self-care (01) ==
LOC: RT 06:06
PROVIDERS: ATTEND Psychiatry & Neurology Neurology
DX: R41.3 Other amnesia (principal)
CPT/HCPCS: 95816

== ENCOUNTER → 2019-02-03 | Outpatient (CLI) | payer OTHER ==
--- NOTE | 2019-02-03 22:33 | EEG ---
DATE OF SERVICE: 02/03/2019 EEG NUMBER: [id number] OBJECTIVE: This is a 58-year-old female patient with history of memory loss. EEG was requested to evaluate cerebral activity and help rule out seizure. METHODS: Twenty electrodes were applied according to the international 10-20 electrode placement system. EKG monitoring, hyperventilation, intermittent photic stimulation, monopolar and bipolar montages are routinely utilized. The record was obtained on a digital system with video monitoring. FINDINGS: 1. Background: The patient was recorded in the awake, drowsy, and sleep states. The overall background amplitude is 5-15 microvolts. A posterior dominant rhythm of 7-8 Hz is observed, but most time is in the 8 Hz range. 2. Abnormalities: No specific epileptiform discharge or electrographic seizure is seen. No diffuse slowing. 3. Activation: Hyperventilation was performed with good efforts and normal response. Intermittent photic stimulation was performed with photic driving. IMPRESSION: This EEG is a borderline study for the awake, drowsy, and sleep states. The posterior dominant rhythm of 7-8 Hz is observed, but most time is in the 8 Hz range. No focal, lateralizing, specific epileptiform discharge or electrographic seizure is seen. GERTRUDE GRANT MD DR: JEYSON/aramis JOB#: [id number] / [id number] MAYCO
== END | disposition home or self-care (01) ==
LOC: RT 07:59
PROVIDERS: ATTEND Psychiatry & Neurology Neurology
DX: R41.3 Other amnesia (principal)
CPT/HCPCS: 95816

== ENCOUNTER → 2019-08-01 | Outpatient (CLI) | payer OTHER ==
--- NOTE | 2019-08-01 15:49 | KCIC ---
BRAIN W/O CONTRAST History:Reason: MIGRAINES WITHOUT AURA / Spl. Instructions: Chronic headaches and neck pain, dizziness after having recent sinus surg. / History: Pt states 5 prev concussions and a subdural bleed in the past. Technique: Multiplanar, multi sequential MR imaging was performed of the brain without contrast. Comparison: None Findings: No acute infarct. No intracranial hemorrhage. No mass effect. No hydrocephalus. Minimal FLAIR hyperintensities within the hemispheric white matter, likely within normal range for age. Imaged orbits are unremarkable. Minimal right inferior maxillary sinus mucosal thickening. Mastoid air cells are clear. Impression: 1. No acute intracranial abnormality. Electronically signed by: Otf Neumann DO (08/01/2019 3:47 PM) [id number]
== END ==
LOC: KCIC MRI 14:30
PROVIDERS: ATTEND Psychiatry & Neurology Neurology with Special Qualifications in Child Neurology
DX: G43.709 Chronic migraine without aura, not intractable, without status migrainosus (principal)
CPT/HCPCS: 70551

== ENCOUNTER → 2019-08-21 | Outpatient (CLI) | payer OTHER ==
--- NOTE | 2019-08-21 12:57 | RAD ---
MR venogram without contrast History:Headaches, vertigo, syncope last year Technique: Noncontrast MR venography was performed of the head. Comparison: None Findings: No occlusive filling defect is identified. Allowing for limitations of noncontrast exam and some motion, no definitive filling defect is identified of the major venous sinuses reproducible on the various image sequences. Smaller filling defects may be difficult to accurately identify. Impression: 1. No convincing venous thrombosis is identified. MRA Brain History:Headaches, vertigo, syncope last year Technique: 3-D [id number] MR angiography was performed of the brain. Comparison: None Findings: Determination of any degree of stenosis is based on NASCET criteria. Both vertebral arteries constitute the basilar artery. There is visualization of segments of bilateral PICAs, not fully included. There is visualization of bilateral AICAs and superior cerebellar arteries. There are patent posterior communicating arteries bilaterally, larger caliber on the left. There is small patent anterior communicating artery. No significant intracranial stenosis or aneurysm is identified. Impression: 1. No significant intracranial stenosis or aneurysm is identified. Electronically signed by: Yariel Leger MD (08/21/2019 12:55 PM) [id number]
--- NOTE | 2019-08-21 12:57 | RAD ---
MR venogram without contrast History:Headaches, vertigo, syncope last year Technique: Noncontrast MR venography was performed of the head. Comparison: None Findings: No occlusive filling defect is identified. Allowing for limitations of noncontrast exam and some motion, no definitive filling defect is identified of the major venous sinuses reproducible on the various image sequences. Smaller filling defects may be difficult to accurately identify. Impression: 1. No convincing venous thrombosis is identified. MRA Brain History:Headaches, vertigo, syncope last year Technique: 3-D qqds-nw-wdwhjj MR angiography was performed of the brain. Comparison: None Findings: Determination of any degree of stenosis is based on NASCET criteria. Both vertebral arteries constitute the basilar artery. There is visualization of segments of bilateral PICAs, not fully included. There is visualization of bilateral AICAs and superior cerebellar arteries. There are patent posterior communicating arteries bilaterally, larger caliber on the left. There is small patent anterior communicating artery. No significant intracranial stenosis or aneurysm is identified. Impression: 1. No significant intracranial stenosis or aneurysm is identified. Electronically signed by: Yariel Leger MD (08/21/2019 12:55 PM) [id number]
== END | disposition home or self-care (01) ==
LOC: MRI 10:54
PROVIDERS: ATTEND Psychiatry & Neurology Neurology with Special Qualifications in Child Neurology
DX: G43.709 Chronic migraine without aura, not intractable, without status migrainosus (principal)
CPT/HCPCS: 70544

== ENCOUNTER → 2019-12-29 | Outpatient (CLI) | payer OTHER ==
--- NOTE | 2019-12-30 09:26 | RAD ---
DATE: 12/29/2019 2:40 PM EXAM: MAMMO ARIEL SCREENING BILATERAL HISTORY: Screening COMPARISON: 06/10/2018, 04/06/2017 Bilateral CC and MLO views of the breasts were performed. Bilateral breast tomosynthesis was performed in CC and MLO projections. This study was interpreted with the benefit of Computerized Aided Detection (CAD). FINDINGS: Breast Density: SCATTERED The breast parenchyma shows scattered fibroglandular densities. Breast parenchyma level B No suspicious masses, microcalcifications or architectural distortion is present to suggest malignancy in either breast. The visualized axillae are unremarkable. IMPRESSION: No mammographic evidence of malignancy. BI-RADS CATEGORY: 1 NEGATIVE RECOMMENDED FOLLOW-UP: 12M 12 MONTH FOLLOW-UP Annual screening mammography is recommended, unless clinically indicated sooner based on symptoms or change in physical exam. PQRS compliance statement: Patient information was entered into a reminder system with a target due date for the next mammogram. Mammography is a sensitive method for finding small breast cancers, but it does not detect them all and is not a substitute for careful clinical examination. A negative mammogram does not negate a clinically suspicious finding and should not result in delay in biopsying a clinically suspicious abnormality. "Our facility is accredited by the [employer] Mammography Program."
== END ==
LOC: MAMMO 14:34
PROVIDERS: ATTEND Family Medicine
DX: Z12.31 Encounter for screening mammogram for malignant neoplasm of breast (principal)
CPT/HCPCS: 77063; 77067

== ENCOUNTER → 2019-12-31 | Outpatient (CLI) | payer OTHER ==
--- NOTE | 2019-12-31 14:11 | CARD ---
MR#: [id number] Date of Study: 12/31/2019 Ordering Physician: NASRA FERRER, Referring Physician: NASRA FERRER, Tech: Jessenia Mclean VERONICA APPROVED REPORT EXAM: Two-dimensional and M-mode echocardiogram with Doppler and color Doppler. Other Information Quality : GoodHR: 68bpm Rhythm : NSR INDICATION Syncope 2D DIMENSIONS RVDd3.2 (2.9-3.5cm)IVSd0.9 (0.7-1.1cm) Aortic Root(2D)3.3 (2.0-3.7cm)LVDd4.8 (3.9-5.9cm) LVOT Diameter2.0 (1.8-2.4cm)PWd0.8 (0.7-1.1cm) LVDs2.9 (2.5-4.0cm)FS (%) 39.2 % SV73.7 ml Aortic Valve AoV Peak Lambert.118.0cm/Nicholas Peak GR.5.6mmHg LVOT Peak Lambert.102.4cm/sAVA (VMAX)2.59cm2 Mitral Valve MV E Uqmnaqqr03.1cm/sMV DECEL NEKW378qr MV A Vqzjljhm00.7cm/sE/A Ratio0.9 MV A Iwfkijer160hz Pulmonary Valve PV Peak Puucnihl13.2cm/s Tricuspid Valve TR P. Voxvzylf502pb/sRAP BEUPMXRT4rhNy TR Peak Gr.30jyTjTWRX62mkZd LEFT VENTRICLE The left ventricle is normal size. There is normal left ventricular wall thickness. Left ventricle sy stolic function is normal. The Ejection Fraction is 60-65%. There is normal LV segmental wall motion. Transmitral Doppler flow pattern is Grade I-abnormal relaxation pattern. RIGHT VENTRICLE The right ventricle is normal size. The right ventricular systolic function is normal. ATRIA The left atrium size is normal. The right atrium size is normal. The interatrial septum is intact wit h no evidence for an atrial septal defect or patent foramen ovale as noted on 2-D or Doppler imaging. AORTIC VALVE The aortic valve is normal in structure. Doppler and Color Flow revealed no significant aortic regurg itation. No aortic valvular stenosis. MITRAL VALVE The mitral valve is normal in structure. There is no mitral valve stenosis. Doppler and Color-flow re vealed trace mitral regurgitation. TRICUSPID VALVE The tricuspid valve is normal in structure. Trace tricuspid regurgitation. The pulmonary artery systo lic pressure is estimated at <20 mmHg. PULMONIC VALVE The pulmonary valve is normal in structure. Trace pulmonic valvular regurgitation. GREAT VESSELS The aortic root is normal in size. The ascending aorta is normal in size. The IVC is normal in size a nd collapses >50% with inspiration. PERICARDIAL EFFUSION There is no evidence of significant pericardial effusion. Critical Notification Critical Value: No <Conclusion> The left ventricle is normal size. Left ventricle systolic function is normal. The Ejection Fraction is 60-65%. There is normal left ventricular wall thickness. Doppler and Color Flow revealed no significant aortic regurgitation. No aortic valvular stenosis. Doppler and Color-flow revealed trace mitral regurgitation. Trace tricuspid regurgitation. The pulmonary artery systolic pressure is estimated at <20 mmHg. Signed by : Luigi Peña MD Electronically Approved : 12/31/2019 14:10:59
== END ==
LOC: ECHO 11:04
PROVIDERS: ATTEND Internal Medicine Cardiovascular Disease
DX: R55 Syncope and collapse (principal)
CPT/HCPCS: 93306

== ENCOUNTER → 2020-01-08 | Outpatient (CLI) | payer OTHER ==
[~2020-01-08] VITALS: Ht 165.1 cm; Wt 64.4 kg
[~2020-01-08] MED LIST changes: +METO-239 PO; +SINCALIDE 1.3 MCG in IV NORMAL SALINE 50ML 30 ML IV ONE
--- NOTE | 2020-01-08 12:51 | RAD ---
Right upper quadrant abdominal ultrasound 01/08/2020 INDICATION: Epigastric abdominal pain. COMPARISON STUDY: CT of the abdomen and pelvis April 12, 2018 Discussion: Ultrasound evaluation of the right upper abdomen was performed. Static images are submitted to PACS. Visualized portions of the pancreas are unremarkable. The gallbladder is normal in appearance but evidence of wall thickening, stones, or sludge. Hepatic echotexture is normal. Portal vein is grossly patent. Common bile duct is nondilated at 2 mm. Liver is top normal in size measuring 17.6 cm longitudinally. The right kidney is normal in appearance measuring 11 cm longitudinally. Visualized aorta and IVC are grossly unremarkable. IMPRESSION: No sonographic evidence of acute abnormality involving the right upper quadrant Electronically signed by: Mundo Peter MD (01/08/2020 12:48 PM) [id number]
--- NOTE | 2020-01-08 14:31 | RAD ---
EXAM: HEPATOBILIARY SCINTIGRAPHY WITH GALLBLADDER EJECTION FRACTION CALCULATION. HISTORY: Epigastric pain. TECHNIQUE: 5.5 mCi technetium-99m Choletec were administered intravenously and scintigraphic images of the abdomen obtained. After filling of the gallbladder, 1.3 mcg of sincalide were infused and the gallbladder ejection fraction calculated. FINDINGS: There is prompt hepatic clearance of tracer from the blood pool. There is homogeneous distribution throughout the liver. There is normal filling of the gallbladder and clearance into the biliary tree and small bowel. The gallbladder ejection fraction is 83% (normal >35%). IMPRESSION: 1. Normal gallbladder ejection fraction. Electronically signed by: Arnol Mullins MD (01/08/2020 2:23 PM) [facility]
== END ==
LOC: US 10:50
PROVIDERS: ATTEND Internal Medicine Gastroenterology
DX: R10.13 Epigastric pain (principal)
CPT/HCPCS: 76705; 78227; A9537; J2805

== ENCOUNTER → 2020-01-15 | Outpatient (CLI) | payer OTHER ==
[~2020-01-15] MED LIST changes: -SINCALIDE 1.3 MCG in IV NORMAL SALINE 50ML 30 ML IV ONE
--- NOTE | 2020-01-15 12:39 | RAD ---
History: Epigastric pain Procedure: The patient ate a standard meal containing 2.1 mCi Tc-99m sulfur colloid. Scintigraphic images of the abdomen were obtained. Counts were obtained. Findings: Retention percentages are as follows: 1 Hr: 44 2 Hr:10 3 Hr:5 4 Hr:0 Time to half emptying is 56 minutes. Normal Retention Percentage Range is as Follows: 1 Hr: 35-91% 2 Hr: 2.7-60% 3 Hr: 0.5-28% 4 Hr: 0-10% Impression: No evidence of delayed gastric emptying Electronically signed by: Warren Pryor MD (01/15/2020 12:36 PM) [id number]
== END ==
LOC: NM 08:49
PROVIDERS: ATTEND Internal Medicine Gastroenterology
DX: R10.13 Epigastric pain (principal)
CPT/HCPCS: 78264; A9541

== ENCOUNTER → 2020-01-28 | Outpatient (CLI) | payer OTHER ==
[~2020-01-28] MED LIST changes: +CONTRAST GIVEN. MC PRN; +IOHEXOL 240 MG/ML 50ML VIAL. PO ONE; +IOHEXOL 300 MG/ML 100ML VIAL. IV ONE
--- NOTE | 2020-01-28 17:36 | RAD ---
Exam: CT abdomen/pelvis with intravenous contrast Indication: Epigastric pain Comparison: CT abdomen pelvis 04/12/2018 Technique: Helical CT imaging performed of the abdomen and pelvis after the intravenous administratio n of 75 mL Omnipaque 300 intravenous contrast. Sagittal and coronal reformats were obtained. One or more of the following individualized dose reduction techniques were utilized for this examinat ion: 1. Automated exposure control 2. Adjustment of the mA and/or kV according to patient size 3. Use of iterative reconstruction technique. Findings: Lower chest: Lung bases are clear. The heart is normal in size Liver: Normal Gallbladder/Biliary Tree: Normal. Pancreas: Normal. Spleen: Normal. Adrenal Glands: Normal. Kidneys/Ureters/Bladder: Normal. Reproductive Organs: Uterus and ovaries are unremarkable. Stomach, small bowel, and colon: Possible mild gastric wall thickening near the GE junction, versus i ncomplete distention. The stomach is otherwise unremarkable. There is a large volume of stool in the cecum and ascending colon. The descending colon, sigmoid colon, and rectum are mostly nondistended, l imiting evaluation. Vasculature: Abdominal aorta and inferior vena cava are normal. Lymph Nodes: No lymphadenopathy. Peritoneum and retroperitoneum: No free fluid or free air. Bones: No acute osseous abnormality. Partial fusion of the sacroiliac joint. Impression: 1. Mild gastric wall thickening near the GE junction versus underdistention. Correlate with endoscop y. 2. Large volume of stool in the right hemicolon. Electronically signed by: Carlotta Rodrigues MD (01/28/2020 5:34 PM) [id number]
== END ==
LOC: CT 11:35
PROVIDERS: ATTEND Internal Medicine Gastroenterology
DX: R10.13 Epigastric pain (principal); R53.83 Other fatigue; M43.28 Fusion of spine, sacral and sacrococcygeal region
CPT/HCPCS: 74177; Q9966; Q9967

== ENCOUNTER → 2020-03-30 | Outpatient (CLI) | payer OTHER ==
[~2020-03-30] MED LIST changes: -CONTRAST GIVEN. MC PRN; -IOHEXOL 240 MG/ML 50ML VIAL. PO ONE; -IOHEXOL 300 MG/ML 100ML VIAL. IV ONE; +REGADENOSON 0.4 MG/5 ML DISP.SYRIN. IV ONE
--- NOTE | 2020-03-30 15:55 | RAD ---
MR#: [id number] Date of Study: 03/30/2020 Ordering Physician: NASRA FERRER, Referring Physician: CHRISTY DUGGAN Tech: SIDNEY Besnon ARRT (R) (N) APPROVED REPORT Test Type: Pharmacological Stress Nurse/Tech: KAMINI RIZO Test Indications: CHEST PAIN Cardiac History: HTN, SEE EMR Medications: SEE EMR Medical History: SEE EMR Resting ECG: SR Resting Heart Rate: 64 bpm Resting Blood Pressure: 119/61mmHg Pretest Chest Pain: No chest pain Nurse/Tech Notes S1S2, LUNGS CTA, VSS, DENIED CP OR SOA. Consent: The procedure was explained to the patient in lay terms. Informed consent was witnessed. Isac eout was entered into [employer]. History and Stress Test performed by RT Priya (R) (N) Pharm. Details Pharmacologic stress testing was performed using 0.4mg per 5ml of regadenoson given intravenously ove r 7-10 seconds. Stress Symptoms PT TOLERATED THE TEST WELL. PT HAD SLIGHT SOA AND UPSET SETTING DURING INITIAL TESTING. VSS. SYMPTOMS RESOLVED QUICKLY. POST EXERCISE Reason for Termination: Infusion complete Max HR: 132 bpm Max Blood Pressure: 141/68mmHg Blood Pressure response to exercise: Normal blood pressure response during stress. Heart Rate response to exercise: WNL Chest Pain: No. Arrhythmia: No. NO SIGNIFICANT CHANGES NOTED FROM BASELINE EKG. ST Change: No. INTERPRETATION Stress EKG Conclusion: No evidence of stress induced EKG changes. Imaging Protocol IMAGE PROTOCOL: Rest Tc-99m/stress Tc-99m 1 day Rest: Stress: Viability: Radiopharm.Tc99m QlryygaslZe02p Sestamibi Okru17oYp 31mCi Img Date 03/30/2020 03/30/2020 Inj-Img Vxbk54vyy. 60min. Rest Admin Site:IV - Right AntecubitalAdministrator:SIDNEY Benson, KARISSA (R)(N) Stress Admin Site: IV - Right AntecubitalAdministrator: RT Priya (R)(N) STRESS DATA End Diast. Vol.79.0mlAv. Heart Rate59.0bpm End Syst. Vol.18.0mlCO Index BSA0.0L/min Myocardial Awfx368.0gEject. Tkmoapzf83.0% Stress Rates Pk. Fill Rate3.11EDV/secLVtime Pk. Fill 253.27msec Pk. Empty Rate4.33ESV/secLVtime Pk. Oybvj078.12msec / Pk. Fill1.28EDV/sec Stress Scores Regional WT1.00Summed WT1.00 Regional WM0.00Summed WM0.00 The rest and stress images show normal perfusion, normal contraction and thickening. LV Perf. Quant 17 Seg. SSS0.00 17 Seg. SRS3.00 17 Seg. SDS0.00 Stress Defect Extent (% LAD)0.00Rest Defect Extent (% LAD)4.40Rev. Defect Extent (% LAD)0.00 Stress Defect Extent (% LCX) 0.00Rest Defect Extent (% LCX)0.00Rev. Defect Extent (% LCX)0.00 Stress Defect Extent (% RCA)0.00Rest Defect Extent (% RCA)0.00Rev. Defect Extent (% RCA)0.00 Stress Defect Extent (% BEV)0.00Rest Defect Extent (% BEV)1.50Rev. Defect Extent (% BEV)0.00 Other Information Quality:Average Risk Assessment: Low Risk Conclusion 1. No evidence of EKG changes with stress testing. 2. Normal perfusion at stress/rest. 3. Low risk study. 4. EF > 60%. Signed by : Prasanth Armstrong, Electronically Approved : 03/30/2020 15:54:59
== END ==
LOC: NM 08:33
PROVIDERS: ATTEND Internal Medicine Cardiovascular Disease
DX: I10 Essential (primary) hypertension (principal); R07.9 Chest pain, unspecified
CPT/HCPCS: 78452; 93017; A9500; J2785

== ENCOUNTER → 2021-01-11 | Outpatient (CLI) | payer OTHER ==
[~2021-01-11] MED LIST changes: -CITA10TA4 PO; +CITA10TA5 PO; -CITA40TA5 PO; +CITA40TA6 PO; -REGADENOSON 0.4 MG/5 ML DISP.SYRIN. IV ONE
--- NOTE | 2021-01-11 14:42 | RAD ---
Bilateral digital screening 2-D and 3-D (digital breast tomosynthesis) mammogram: Reason for examination: Routine screening. Comparison: Mammograms from 12/29/2019 and 06/10/2018. Interpretation was made with the benefit of CAD. FINDINGS: Breast density: Category B. There are scattered areas of fibroglandular density. No suspicious breast mass, malignant appearing calcifications, or architectural distortion is seen. IMPRESSION: No evidence of malignancy. Assessment: BI-RADS 1. Negative. Recommendation: Routine screening mammograms. The patient will receive a letter with the results in the mail. Patient information will be entered i nto the mammography reminder system with a target recall date for the next mammogram. A reminder geo er will be generated. Electronically signed by: Brenda Milligan MD (01/11/2021 2:40 PM) [id number]
== END ==
LOC: MAMMO 14:05
PROVIDERS: ATTEND Family Medicine
DX: Z12.31 Encounter for screening mammogram for malignant neoplasm of breast (principal)
CPT/HCPCS: 77067

== ENCOUNTER → 2021-04-06 | Outpatient (CLI) | payer OTHER ==
--- NOTE | 2021-04-08 15:15 | CARD ---
MR#: [id number] Date of Study: 04/06/2021 Ordering Physician: NASRA FERRER, Referring Physician: NASRA FERRER Tech: Olivia Bynum [facility] APPROVED REPORT EXAM: Two-dimensional and M-mode echocardiogram with Doppler and color Doppler. Other Information Quality : GoodHR: 63bpm Rhythm : NSR INDICATION Hypertension/HCVD RISK FACTORS Hypertension 2D DIMENSIONS RVDd3.0 (2.9-3.5cm)Left Atrium(2D)3.1 (1.6-4.0cm) IVSd1.0 (0.7-1.1cm)Aortic Root(2D)3.2 (2.0-3.7cm) LVDd4.2 (3.9-5.9cm)LVOT Diameter1.9 (1.8-2.4cm) PWd1.1 (0.7-1.1cm)LVDs2.8 (2.5-4.0cm) FS (%) 33.8 %SV49.9 ml Aortic Valve AoV Peak Lambert.135.9cm/sAoV VTI32.1cm AO Peak GR.7.4mmHgLVOT Peak Lambert.110.9cm/s AO Mean GR.4mmHgAVA (VMAX)2.29cm2 Mitral Valve MV E Tmdmsyws10.5cm/sMV DECEL HWDQ266dq MV A Uhlsjzzf56.5cm/sE/A Ratio0.8 Pulmonary Valve PV Peak Ztgocrvh171.1cm/s Tricuspid Valve TR P. Yauumkie738fq/sTR Peak Gr.18mmHg LEFT VENTRICLE The left ventricle is normal size. There is borderline concentric left ventricular hypertrophy. The l eft ventricular systolic function is normal and the ejection fraction is within normal range. Left ve ntricular ejection fraction of 50 to 55 %. There is normal LV segmental wall motion. The left ventric ular diastolic function and filling is normal for age. RIGHT VENTRICLE The right ventricle is normal size. There is normal right ventricular wall thickness. The right ventr icular systolic function is normal. ATRIA The left atrium size is normal. The right atrium size is normal. The interatrial septum is intact wit h no evidence for an atrial septal defect or patent foramen ovale as noted on 2-D or Doppler imaging. AORTIC VALVE The aortic valve is normal in structure and function. Doppler and Color Flow revealed no significant aortic regurgitation. There is no significant aortic valvular stenosis. MITRAL VALVE The mitral valve is normal in structure and function. There is no evidence of mitral valve prolapse. There is no mitral valve stenosis. Doppler and Color-flow revealed trace mitral regurgitation. TRICUSPID VALVE The tricuspid valve is normal in structure and function. Doppler and Color Flow revealed trace tricus pid regurgitation. Estimated PAP 22 mmHg. There is no tricuspid valve stenosis. GREAT VESSELS The aortic root is normal in size. The ascending aorta is normal in size. The IVC is normal in size a nd collapses >50% with inspiration. PERICARDIAL EFFUSION There is no evidence of significant pericardial effusion. Critical Notification Critical Value: No <Conclusion> The left ventricle is normal size. The left ventricular systolic function is normal and the ejection fraction is within normal range. Left ventricular ejection fraction of 50 to 55 %. There is borderline concentric left ventricular hypertrophy. Doppler and Color Flow revealed no significant aortic regurgitation. There is no significant aortic valvular stenosis. Doppler and Color-flow revealed trace mitral regurgitation. Doppler and Color Flow revealed trace tricuspid regurgitation. Estimated PAP 22 mmHg. Signed by : Luigi Peña MD Electronically Approved : 04/08/2021 15:15:12
== END ==
LOC: ECHO 14:58
PROVIDERS: ATTEND Internal Medicine Cardiovascular Disease
DX: I10 Essential (primary) hypertension (principal)
CPT/HCPCS: 93306; C8929